=== PATIENT | male | born 1965 | race Two or more races ===

== ENCOUNTER → 2016-11-19 | Outpatient (CLI) | payer OTHER, MEDICAID ==
--- NOTE | 2016-11-19 16:27 | REP ---
CHEST, TWO VIEWS: COMPARISON: None. Two views of chest are performed. Mild increased interstitial markings in the lung bases bilaterally are most consistent with mild interstitial fibrotic change. No consolidating infiltrate is seen. Heart is normal in size and the mediastinal silhouette is unremarkable. There are mild degenerative changes of the spine. IMPRESSION: There appears to be mild interstitial fibrotic change. No definite acute infiltrate. Signed by Simon Alarcon MD 11/19/2016 07:49 P
== END ==
LOC: M LRY 15:42
PROVIDERS: ATTEND Physician Assistant
DX: J44.1 Chronic obstructive pulmonary disease with (acute) exacerbation (principal)

== ENCOUNTER → 2017-04-19 | Outpatient (CLI) | payer OTHER ==
--- NOTE | 2017-04-20 20:21 | SLEEPCENT ---
DATE OF PROCEDURE: 04/19/2017 ORDERED BY: Dr. Mayes Nocturnal polysomnography was performed for evaluation of sleep physiology in this patient with a history of excessive somnolence and nonrestorative sleep, comorbidities of non-insulin dependent diabetes mellitus and obstructive lung disease. 8 hours and 12 minutes of data were reviewed. There were 452 minutes of sleep identified. Sleep latency was short at 4 minutes. Rapid eye movement (REM) latency was prolonged at 122 minutes. Sleep architecture showed fragmentation. There were two REM cycles appreciated. Overall sleep efficiency was 92.6% The patient's EKG showed a sinus rhythm with an average heart rate of 72 beats per minute. EEG showed mild coarsening in background, otherwise normal waveforms for awake and sleep. There were no focal events identified. There were 100 respiratory events identified of 10 seconds in duration or greater for an apnea-hypopnea index of 13.3. The events were primarily obstructive, not exclusive to sleep stage nor body posture. Arousals from respiratory events occurred 3.3 times per hour and oxygen desaturations were seen into the 80s. There was some limb activity noted, two trains of 30 events. Limb movement arousal index was borderline at 8.2. IMPRESSION: Obstructive sleep apnea syndrome (G47.33). Apnea-hypopnea index 13.3. RECOMMENDATION: The patient should be encouraged to return to the sleep disorder center for pressure therapy. In the interim, alcohol and sedative avoidance should be practiced and caution exercised during the operation of motor vehicles. Copy To: Darron Lewis
== END ==
LOC: M SLEEP 20:00
PROVIDERS: ATTEND Internal Medicine Pulmonary Disease
DX: G47.30 Sleep apnea, unspecified (principal)

== ENCOUNTER → 2017-05-13 | Outpatient (CLI) | payer OTHER ==
--- NOTE | 2017-05-15 15:20 | SLEEPCENT ---
DATE OF PROCEDURE: 05/13/2017 ORDERED BY: Dr. Mayes Nocturnal polysomnography was performed for the titration of pressure therapy in this patient with obstructive sleep apnea syndrome, apnea hypopnea index of 13. For testing, the patient was fit with a [employer] Quattro full face mask of large size. 5 cm of water pressure were applied to the circuit and the lights were extinguished. 8 hours and 21 minutes of data were reviewed. There were 440 minutes of sleep identified. Sleep latency was short at 2.5 minutes. Rapid eye movement (REM) latency was prolonged at 204 minutes. Sleep architecture improved late in the study. Overall sleep efficiency was 90%. The electrocardiogram showed a sinus rhythm with premature atrial contractions (PACs). Average heart rate 78 beats per minute. Electroencephalogram (EEG) showed normal waveforms for awake and sleep. Respiratory obstructive events were best palliated with CPAP at pressure of +9. Persistent hypoventilatory desaturations prompted the addition of supplemental oxygen. Best sleep was seen on a CPAP pressure of 9 with 3 liters of oxygen bled through the system. Limb activity was again identified during the titration study, but limb movement arousal index was only 4.6. IMPRESSION: Obstructive sleep apnea syndrome (G47.33). RECOMMENDATION: Nightly use of pressure therapy 9 cm of water with 3 liters of oxygen bled through the system to address hypoventilatory oxygen desaturations.
== END ==
LOC: M SLEEP 19:38
PROVIDERS: ATTEND Internal Medicine Pulmonary Disease
DX: G47.33 Obstructive sleep apnea (adult) (pediatric) (principal)

== ENCOUNTER → 2023-07-21 | Outpatient (REF) | payer OTHER, MEDICAID | LOC: M SFHCDERM 14:06 | PROVIDERS: ATTEND Physician Assistant | DX: L73.2 Hidradenitis suppurativa (principal) ==

== ENCOUNTER → 2023-10-16 | Outpatient (CLI) | payer MEDICARE, MEDICAID | LOC: M RAD 10:31 | PROVIDERS: ATTEND Internal Medicine Pulmonary Disease | DX: R91.1 Solitary pulmonary nodule (principal); R91.8 Other nonspecific abnormal finding of lung field ==

== ENCOUNTER → 2023-10-21 | Outpatient (REF) | payer MEDICARE, MEDICAID | LOC: M SFHCDERM 09:31 | PROVIDERS: ATTEND Physician Assistant | DX: L73.2 Hidradenitis suppurativa (principal) ==

== ENCOUNTER → 2023-10-21 | Outpatient (CLI) | payer MEDICARE, MEDICAID | LOC: M LAB 10:05 | PROVIDERS: ATTEND Physician Assistant | DX: L73.2 Hidradenitis suppurativa (principal) ==

== ENCOUNTER → 2023-12-03 | Outpatient (CLI) | payer MEDICARE, MEDICAID | LOC: M PLAIMG 10:58 → M PLALAB 10:58 | PROVIDERS: ATTEND Internal Medicine Infectious Disease | DX: R76.12 Nonspecific reaction to cell mediated immunity measurement of gamma interferon antigen response without active tuberculosis (principal) ==

== ENCOUNTER → 2023-12-24 | Outpatient (REF) | payer MEDICARE, MEDICAID | LOC: M SFHCPLAZ 14:57 | PROVIDERS: ATTEND Internal Medicine Infectious Disease | DX: R76.12 Nonspecific reaction to cell mediated immunity measurement of gamma interferon antigen response without active tuberculosis (principal) ==

== ENCOUNTER → 2024-01-18 | Outpatient (CLI) | payer MEDICARE, MEDICAID | LOC: M RAD 16:56 | PROVIDERS: ATTEND Internal Medicine Infectious Disease | DX: R91.8 Other nonspecific abnormal finding of lung field (principal); R76.12 Nonspecific reaction to cell mediated immunity measurement of gamma interferon antigen response without active tuberculosis ==

== ENCOUNTER → 2024-01-20 | Outpatient (REF) | payer MEDICARE, MEDICAID | LOC: M SFHCDERM 16:03 | PROVIDERS: ATTEND Physician Assistant | DX: Z79.899 Other long term (current) drug therapy (principal) ==

== ENCOUNTER → 2024-04-18 | Outpatient (CLI) | payer MEDICAID, MEDICARE | LOC: M PLAIMG 12:56 | PROVIDERS: ATTEND Internal Medicine Pulmonary Disease | DX: R91.8 Other nonspecific abnormal finding of lung field (principal) ==

== ENCOUNTER → 2024-08-09 | Outpatient (CLI) | payer MEDICARE, MEDICAID ==
[2024-08-09 15:43] LABS: HEPATITIS B SURFACE ANTIBODY NEGATIVE (POSITIVE)
[2024-08-09 15:54] LABS: HEPATITIS B SURFACE ANTIGEN NEGATIVE (NEGATIVE)
== END ==
LOC: M LAB 13:55
PROVIDERS: ATTEND Physician Assistant
DX: L73.2 Hidradenitis suppurativa (principal)